=== PATIENT | female | born 1990 | race Caucasian/White ===

== ENCOUNTER 2017-01-31 04:35 | Emergency (ER) | payer OTHER ==
[~2017-01-31] VITALS: Ht 162.6 cm; Wt 54.4 kg
[2017-01-31 05:04] LABS: BASOPHIL % 0.2 % (0-2); PLATELET COUNT 268 x10^3mcL (130-400); RED CELL DISTRIBUTION WIDTH 13.3 % (11.5-14.5)
[2017-01-31 05:12] LABS: CALCIUM 8.5 mg/dL (8.5-10.1); CARBON DIOXIDE 21.8 mmol/L (21-32); CHLORIDE SERUM 104 mmol/L (98-107); CREATININE SERUM 0.8 mg/dL (0.6-1.0); GFR1 > 60 mL/min; GLUCOSE SERUM 126 mg/dL (74-106); POTASSIUM SERUM 3.8 mmol/L (3.5-5.1); SODIUM SERUM 141 mmol/L (136-145)
[2017-01-31 05:18] LABS: ALBUMIN 3.8 g/dL (3.4-5.0); ALKALINE PHOSPHATASE 48 U/L (46-116); ALT/SGPT 30 U/L (14-59); AMYLASE 77 U/L (25-115); AST/SGOT 20 U/L (15-37); BILIRUBIN TOTAL 0.44 mg/dL (0.20-1.00); LIPASE 122 IU/L (73-393)
[2017-01-31 05:43] LABS: UA SPECIFIC GRAVITY 1.015 (1.005-1.035); microscopic required? YES; urine erythrocyte 3+ (NEGATIVE)
[2017-01-31 07:16] LABS: AMPHETAMINE QUAL UR NONE DETECTED (NEG <=1000)
[2017-01-31 07:52] VITALS: BP 126/71
== END 2017-01-31 07:52 | disposition home or self-care (01) ==
LOC: ED 04:35
PROVIDERS: Emergency Medicine; Specialist
DX: K80.20 Calculus of gallbladder without cholecystitis without obstruction (principal); R11.2 Nausea with vomiting, unspecified
CPT/HCPCS: 83880; J1885; J2405; J3010; J7030

== ENCOUNTER 2017-04-01 04:22 | Emergency (ER) | payer OTHER ==
[2017-04-01 05:13] LABS: BASOPHIL % 0.4 % (0-2); CALCIUM 8.4 mg/dL (8.5-10.1); CARBON DIOXIDE 25.9 mmol/L (21-32); CHLORIDE SERUM 102 mmol/L (98-107); CREATININE SERUM 0.6 mg/dL (0.6-1.0); GFR1 > 60 mL/min; GLUCOSE SERUM 104 mg/dL (74-106); PLATELET COUNT 241 x10^3mcL (130-400); POTASSIUM SERUM 3.4 mmol/L (3.5-5.1); RED CELL DISTRIBUTION WIDTH 12.3 % (11.5-14.5); SODIUM SERUM 137 mmol/L (136-145)
[2017-04-01 05:20] LABS: ALBUMIN 3.7 g/dL (3.4-5.0); ALKALINE PHOSPHATASE 57 U/L (46-116); ALT/SGPT 40 U/L (14-59); AMYLASE 51 U/L (25-115); AST/SGOT 29 U/L (15-37); BILIRUBIN TOTAL 0.4 mg/dL (0.20-1.00); LIPASE 104 IU/L (73-393); TOTAL PROTEIN, SERUM 7.6 g/dL (6.4-8.2)
[2017-04-01 06:38] VITALS: BP 104/65
== END 2017-04-01 06:38 | disposition home or self-care (01) ==
LOC: ED 04:22
PROVIDERS: Emergency Medicine
DX: K80.20 Calculus of gallbladder without cholecystitis without obstruction (principal); Z87.19 Personal history of other diseases of the digestive system
CPT/HCPCS: 83880; J2405; J3010; J7030